=== PATIENT | female | born 1955 | race African-American/Black ===

== ENCOUNTER 2022-04-28 23:05 | Inpatient (IN) | payer MEDICAID, OTHER ==
[~2022-04-28] VITALS: Ht 165.1 cm; Wt 45.8 kg
[2022-04-29 01:32] LABS: HEMOGLOBIN. 10.5 g/dL (12.0-16.0); MEAN CORPUSCULAR HEMOGLOBIN 32.9 pg (28.0-32.0); MEAN PLATELET VOLUME 8.7 fl (7.4-10.4); PLATELET 128 x1000/uL (130-400); RED BLOOD CELL COUNT 3.17 mill/uL (4.2-5.4); RED CELL DISTRIBUTION WIDTH 13.9 % (11.6-14.6)
[2022-04-29 02:24] LABS: CHLORIDE 106 mEq/L (98-107)
[2022-04-29 02:27] LABS: PLATELET ESTIMATE SLIGHTLY DECREASED
[2022-04-29 16:25] VITALS: BP 105/76
[2022-04-29] MEDS ORDERED: NALOXONE HCL 0.4MG/ML VIAL IV PRN (17:00)
[2022-04-29] MEDS: MORPHINE SULFATE 2 MG/ML CPJ (NOT FOR IM USE) IV PRN ×2 (17:20→23:44)
[2022-04-29] MEDS ORDERED: IPRATROPIUM/ALBUTEROL 0.5-3(2.5)MG/3ML NEB HHN PRN (17:45)
[2022-04-29] MEDS ORDERED: ACETAMINOPHEN 325MG TABLET PO PRN (17:45)
[2022-04-29] MEDS ORDERED: HYDROCODONE/ACETAMINOPHEN 5/325MG TABLET PO PRN (17:45)
[2022-04-29] MEDS ORDERED: ENOXAPARIN 40MG/0.4ML SYR SUBCUT SCH (17:45)
[2022-04-29] MEDS: ENOXAPARIN 30MG/0.3ML SYR SUBCUT SCH (18:00)
[2022-04-29] MEDS ORDERED: LEVO750T46 PO (18:09)
[2022-04-29] MEDS ORDERED: DOCU100T PO (18:09)
[2022-04-29] MEDS ORDERED: TRAM50TA3 MT (18:09)
[2022-04-29] MEDS ORDERED: ONDA4TAB50 PO (18:09)
[2022-04-29] MEDS ORDERED: METR-167 MT (18:09)
[2022-04-29 20:00] VITALS: BP 114/66
[2022-04-29] MEDS ORDERED: LEVOFLOXACIN 500MG PREMIX 100 ML IV NR (20:00)
[2022-04-30] VITALS: BP 110/74
[2022-04-30 02:03] LABS: *AMPHETAMINES SCREEN URINE NEGATIVE (NEGATIVE); *BARBITURATES SCREEN URINE NEGATIVE (NEGATIVE); *BENZODIAZEPINES SCREEN URINE NEGATIVE (NEGATIVE); *COCAINE SCREEN URINE PRESUMTIVE POSITIVE (NEGATIVE); CANNABINOID URINE SCREEN NEGATIVE (NEGATIVE); METHADONE URINE SCREEN NEGATIVE (NEGATIVE); OPIATES URINE SCREEN PRESUMTIVE POSITIVE (NEGATIVE); PHENCYCLIDINE URINE SCREEN NEGATIVE (NEGATIVE)
[2022-04-30 04:00] VITALS: BP 146/87
[2022-04-30 08:00] VITALS: BP 86/32
[2022-04-30 08:18] LABS: CHLORIDE 106 mEq/L (98-107)
[2022-04-30 08:19] LABS: HEMATOCRIT. 30.9 % (36.0-48.0); HEMOGLOBIN. 10.2 g/dL (12.0-16.0); MEAN CORPUSCULAR HEMOGLOBIN 33.3 pg (28.0-32.0); MEAN CORPUSCULAR VOLUME 100.9 fL (81.0-99.0); MEAN PLATELET VOLUME 8.3 fl (7.4-10.4); PLATELET 124 x1000/uL (130-400); RED BLOOD CELL COUNT 3.06 mill/uL (4.2-5.4); RED CELL DISTRIBUTION WIDTH 13.9 % (11.6-14.6)
[2022-04-30 08:42] LABS: HDL CHOLESTEROL 35 mg/dL (40-59); LDL CHOLESTEROL 47 mg/dL (5-100); T4 FREE 1.26 ng/dL (0.76-1.46)
[2022-04-30] MEDS ORDERED: SODIUM CHLORIDE 0.9% 250 ML IV SCH (09:00)
[2022-04-30 10:30] LABS: PLATELET ESTIMATE SLIGHTLY DECREASED
[2022-04-30] MEDS: MORPHINE SULFATE 2 MG/ML CPJ (NOT FOR IM USE) IV PRN (11:45)
[2022-04-30 12:00] VITALS: BP 122/81
[2022-04-30] MEDS: SODIUM CHLORIDE 0.9% 1,000 ML IV SCH (15:58)
[2022-04-30 16:00] VITALS: BP 118/80
[2022-04-30] MEDS: ENOXAPARIN 30MG/0.3ML SYR SUBCUT SCH (17:49)
[2022-04-30 20:00] VITALS: BP 136/70
[2022-05-01] VITALS (7 sets, daily range): BP systolic 110–136; BP diastolic 70–85
[2022-05-01] MEDS: MORPHINE SULFATE 2 MG/ML CPJ (NOT FOR IM USE) IV PRN ×2 (09:17→15:42)
[2022-05-01] MEDS ORDERED: LEVOFLOXACIN 500MG PREMIX 100 ML IV SCH (11:00)
[2022-05-01] MEDS: ENOXAPARIN 30MG/0.3ML SYR SUBCUT SCH (17:21)
[2022-05-01] MEDS: SODIUM CHLORIDE 0.9% 1,000 ML IV SCH (17:22)
[2022-05-02 04:00] VITALS: BP 109/75
[2022-05-02 07:39] LABS: HEMATOCRIT. 28.5 % (36.0-48.0); HEMOGLOBIN. 9.6 g/dL (12.0-16.0); MEAN CORPUSCULAR HEMOGLOBIN 33.5 pg (28.0-32.0); MEAN CORPUSCULAR VOLUME 99.8 fL (81.0-99.0); MEAN PLATELET VOLUME 8.5 fl (7.4-10.4); PLATELET 135 x1000/uL (130-400); RED BLOOD CELL COUNT 2.85 mill/uL (4.2-5.4)
[2022-05-02 08:00] VITALS: BP 115/74
[2022-05-02] MEDS: SODIUM CHLORIDE 0.9% 1,000 ML IV SCH (09:41)
[2022-05-02 12:00] VITALS: BP 128/75
[2022-05-02] MEDS: ONDANSETRON HCL 4MG/2ML INJ IV PRN ×2 (15:22→21:18)
[2022-05-02] MEDS: MORPHINE SULFATE 2 MG/ML CPJ (NOT FOR IM USE) IV PRN (15:22)
[2022-05-02 16:00] VITALS: BP 132/82
[2022-05-02] MEDS: ENOXAPARIN 30MG/0.3ML SYR SUBCUT SCH (17:10)
[2022-05-02 18:35] VITALS: BP 136/82
[2022-05-02 20:06] VITALS: BP 123/81
[2022-05-02 22:08] LABS: PLATELET ESTIMATE NORMAL
== END 2022-05-02 22:17 | disposition hospice, home (50) | DRG 136 ==
LOC: ER 23:05 → 8WST 04-29 13:03 → ENRESERV 04-29 14:18
PROVIDERS: ADMIT Internal Medicine; ATTEND Internal Medicine
DX: C34.90 Malignant neoplasm of unspecified part of unspecified bronchus or lung (principal); N17.9 Acute kidney failure, unspecified; E43 Unspecified severe protein-calorie malnutrition; R62.7 Adult failure to thrive; I10 Essential (primary) hypertension; Z20.822 Contact with and (suspected) exposure to COVID-19; R10.9 Unspecified abdominal pain; Z68.1 Body mass index [BMI] 19.9 or less, adult; R53.1 Weakness
CPT/HCPCS: 36415; 71045; 71250; 74176; 80048; 80053; 80061; 80305; 83880; 84439; 84443; 84481; 84484; 85025; 87426; 93005; 97162; 97166; 99291; C9803; J1650; J1956; J2270; J2405; J7030